=== PATIENT | female | born 1955 | race Caucasian/White ===

== ENCOUNTER 2018-09-05 15:51 | Outpatient (CLI) | payer BC ==
--- NOTE | 2018-09-05 16:47 | RAD ---
RIGHT KNEE FOUR VIEWS: History: Pain. FINDINGS: Mild degenerative changes of the right knee joint. Minimal increased density in the suprapatellar reg ion, possibly some suprapatellar recess fluid and associated effusion. No evidence for acute fracture or dislocation. IMPRESSION: Degenerative changes with possible joint effusion. No fracture or dislocation. POS: [facility]
== END 2018-09-05 15:52 | disposition home or self-care (01) ==
LOC: RAD-FRANK 15:51
PROVIDERS: ATTEND Nurse Practitioner Family
DX: M25.561 Pain in right knee (principal); M17.11 Unilateral primary osteoarthritis, right knee
CPT/HCPCS: 36415; 80053; 85025; 85379

== ENCOUNTER 2018-09-22 07:47 | Outpatient (CLI) | payer BC ==
--- NOTE | 2018-09-22 10:33 | MRI ---
MRI RIGHT KNEE: Date: 09/22/18 PROVIDED CLINICAL HISTORY: Right knee pain without injury. FINDINGS: The anterior cruciate ligament, posterior cruciate ligament, medial collateral ligament, and lateral collateral ligamentous complex demonstrate an intact MR appearance, as does the extensor mechanism. There is a complex, nondisplaced tear involving the posterior horn of the medial meniscus with a prom inent radial component. There is medial meniscal extrusion. The lateral meniscus demonstrates no evid ence for tear. There is full thickness articular cartilage loss involving the lateral aspect of the medial facet of the patella. Articular cartilage appears thinned and irregular involving the central weightbearing po rtions of the medial femorotibial joint. There is a large knee joint effusion with prominent Singh's cyst. There is patchy signal alteration o n fluid sensitive sequences within the medial tibial plateau, likely reactive to the articular cartil age loss and meniscal tear. IMPRESSION: 1. Complex posterior horn medial meniscal tear. 2. Patellar and medial femorotibial articular chondrosis. 3. Large knee joint effusion with prominent Singh's cyst. POS: OFF
== END 2018-09-22 07:48 | disposition home or self-care (01) ==
LOC: SCSMRI 07:47
PROVIDERS: ATTEND Pediatrics Sports Medicine
DX: M25.561 Pain in right knee (principal); M25.461 Effusion, right knee; M23.91 Unspecified internal derangement of right knee; M79.18 Myalgia, other site; S83.241A Other tear of medial meniscus, current injury, right knee, initial encounter; M71.21 Synovial cyst of popliteal space [Baker], right knee

== ENCOUNTER 2020-10-01 10:40 | Outpatient (CLI) | payer MEDICARE, BC | END 2020-10-01 10:41 | disposition home or self-care (01) | LOC: BICMAMMO 10:40 | PROVIDERS: ATTEND Nurse Practitioner Family | DX: Z12.31 Encounter for screening mammogram for malignant neoplasm of breast (principal); Z13.820 Encounter for screening for osteoporosis; Z78.0 Asymptomatic menopausal state; M85.851 Other specified disorders of bone density and structure, right thigh; M85.852 Other specified disorders of bone density and structure, left thigh | CPT/HCPCS: 77063; 77067; 77080 ==